=== PATIENT | male | born 1950 | race African-American/Black ===

== ENCOUNTER 2022-04-07 14:49 | Emergency (ER) | payer MEDICARE ==
[~2022-04-07] VITALS: Ht 177.8 cm; Wt 75.0 kg
[2022-04-07] MEDS ORDERED: SODIUM CHLORIDE 0.9% 1,000 ML IV ONE (15:15)
[2022-04-07 15:55] LABS: BASOPHILS % 0.4 % (0.0-2.0); HEMOGLOBIN. 13.5 g/dL (14.0-18.0); LYMPHOCYTES % 19.7 % (20.0-50.0); MEAN CORPUSCULAR HEMOGLOBIN 33.5 pg (28.0-32.0); MEAN CORPUSCULAR VOLUME 99.3 fL (80.0-94.0); MEAN PLATELET VOLUME 8.9 fl (7.4-10.4); MONOCYTES % 9.1 % (2.0-8.0); NEUTROPHILS % 69.8 % (40.0-76.0); PLATELET 204 x1000/uL (130-400); RED BLOOD CELL COUNT 4.03 mill/uL (4.7-6.1); RED CELL DISTRIBUTION WIDTH 13.4 % (11.6-14.6)
[2022-04-07 16:03] LABS: CHLORIDE 104 mEq/L (98-107)
[2022-04-07 16:16] LABS: ETHANOL BLOOD < 10 mg/dL
[2022-04-07 17:00] VITALS: BP 138/86
== END 2022-04-08 02:07 | disposition home or self-care (01) ==
LOC: ER 14:49
DX: F03.90 Unspecified dementia, unspecified severity, without behavioral disturbance, psychotic disturbance, mood disturbance, and anxiety (principal)
CPT/HCPCS: 36415; 70450; 80053; 80320; 84484; 85025; 96360; 96361; 99284; J7030; G0480